=== PATIENT | male | born 1990 | race Caucasian/White ===

== ENCOUNTER 2017-08-13 03:32 | Emergency (ER) | payer BC ==
--- NOTE | 2017-08-13 03:49 | EDM.PDOC ---
ED HPI GENERAL MEDICAL PROBLEM - General Chief Complaint: Chest Pain Stated Complaint: CHEST PAINS Time Seen by Provider: 08/13/17 03:45 Source of Information: Reports: Patient, RN History Limitations: Reports: No Limitations - History of Present Illness INITIAL COMMENTS - FREE TEXT/NARRATIVE: 27 yo non-smoking male presents with anterior chest pain since about 2030h yesterday. Describes it as a constant ache. Has no medical history including no HTN, but has not had it measured in many yrs. Has no SOB, nausea, radiation, or diaphoresis. No calf pain or recent travel. FHx is significant for HTN in his father. The pain was preceded by and is still accompanied by left arm numbness. No neck pain at rest or with movement. The pain was keeping him awake so he came into the ER (alone) from his home in [place]. Onset Date: 08/12/17 Onset Time: 20:30 Duration: Hour(s): Location: Reports: Chest Quality: Reports: Ache Severity: Moderate Improves with: Reports: None Worsens with: Reports: None Context: Reports: Other (unknown) Associated Symptoms: Reports: Other (L arm numbness.) Treatments MEDIA SPECIALIST: Reports: Other (see below) (none) Left Chest Pain Score (Numeric/FACES): 3 - Related Data Allergies Allergy/AdvReac Type Severity Reaction Status Date / Time bee venom protein (honey bee) Allergy Anaphylactic Verified 08/13/17 03:45 Shock Home Meds: Home Meds NK [No Known Home Meds] 08/13/17 [History] ED ROS GENERAL - Review of Systems Review Of Systems: See Below Constitutional: Reports: No Symptoms HEENT: Reports: No Symptoms Respiratory: Reports: No Symptoms Cardiovascular: Reports: Chest Pain. Denies: Blood Pressure Problem, Claudication, Dyspnea on Exertion, Edema, Lightheadedness, Orthopnea, Palpitations, PND, Syncope Endocrine: Reports: No Symptoms GI/Abdominal: Reports: No Symptoms : Reports: No Symptoms Musculoskeletal: Reports: No Symptoms Skin: Reports: No Symptoms Neurological: Reports: Numbness (L arm) Psychiatric: Reports: No Symptoms ED EXAM, GENERAL - Physical Exam Exam: See Below Exam Limited By: No Limitations General Appearance: Alert, WD/WN, No Apparent Distress Eye Exam: Bilateral Eye: Normal Inspection Ears: Normal External Exam, Normal Canal, Hearing Grossly Normal, Normal TMs Ear Exam: Bilateral Ear: Auricle Normal, Canal Normal, TM normal Nose: Normal Inspection, Normal Mucosa, No Blood Throat/Mouth: Normal Inspection, Normal Lips, Normal Oropharynx, Normal Voice, No Airway Compromise Head: Atraumatic, Normocephalic Neck: Normal Inspection, Supple, Non-Tender Respiratory/Chest: No Respiratory Distress, Lungs Clear, Normal Breath Sounds, No Accessory Muscle Use, Chest Non-Tender Cardiovascular: Regular Rate, Rhythm, Tachycardia (mild resting tachycardia in the upper 80's to upper 90's.) GI/Abdominal: Normal Bowel Sounds, Soft, Non-Tender, No Distention Back Exam: Normal Inspection. No: CVA Tenderness (R), CVA Tenderness (L) Extremities: Normal Inspection, Normal Range of Motion, Non-Tender, No Pedal Edema Neurological: Alert, Oriented, CN II-XII Intact, Normal Cognition, No Motor/ Sensory Deficits Psychiatric: Normal Affect, Normal Mood Skin Exam: Warm, Dry, Intact, Normal Color, No Rash Lymphatic: No Adenopathy EKG INTERPRETATION EKG Date: 08/13/17 Time: 03:30 Rhythm: NSR Rate (Beats/Min): 96 [place]: Normal P-Wave: Present QRS: Normal ST-T: Normal QT: Normal Comparison: NA - No Prior EKG EKG Interpretation Comments: deep QRS's in anterior leads consistent with LVH. Course - Vital Signs Text/Narrative:: NTG 0.4 mg SL reduced his pain from 3-4/10 to 1/10 Later in his ER course after all his labs were reviewed he was walked several laps in the ER without a worsening of his sx's. Last Recorded V/S: Last Vital Signs Temp 35.7 C 08/13/17 03:40 Pulse 75 08/13/17 04:44 Resp 14 08/13/17 03:40 BP 125/75 08/13/17 04:44 Pulse Ox 100 08/13/17 03:40 - Orders/Labs/Meds Orders: Active Orders 24 hr Category Date Time Status Cardiac Monitoring [RC] .As Directed Care 08/13/17 03:46 Active EKG Documentation Completion [RC] ASDIRECTED Care 08/13/17 03:46 Active Nitroglycerin [Nitrostat] Med 08/13/17 03:57 Active 0.4 mg SL Q5M PRN Sodium Chloride 0.9% [Saline Flush] Med 08/13/17 03:58 Active 10 ml FLUSH ASDIRECTED PRN Saline Lock Insert [OM.PC] Routine Oth 08/13/17 03:58 Ordered EKG 12 Lead [EK] Routine Ther 08/13/17 03:46 Ordered Medication Orders Nitroglycerin (Nitrostat) 0.4 mg SL Q5M PRN PRN Reason: Chest Pain Last Admin: 08/13/17 04:09 Dose: 0.4 mg Sodium Chloride (Saline Flush) 10 ml FLUSH ASDIRECTED PRN PRN Reason: Keep Vein Open Last Admin: 08/13/17 04:08 Dose: 10 ml Labs: Laboratory Tests 08/13/17 08/13/17 08/13/17 Range/Units 04:08 04:08 04:08 WBC 7.5 (4.5-11.0) K/uL RBC 5.12 (4.30-5.90) M/uL Hgb 16.2 H (12.0-15.0) g/dL Hct 46.9 (40.0-54.0) % MCV 92 (80-98) fL MCH 32 H (27-31) pg MCHC 35 (32-36) % Plt Count 228 (150-400) K/uL D-Dimer, Quantitative < 100 (0.0-400.0) ng/mL Sodium 141 (140-148) mmol/L Potassium 3.9 (3.6-5.2) mmol/L Chloride 102 (100-108) mmol/L Carbon Dioxide 28 (21-32) mmol/L Anion Gap 10.9 (5.0-14.0) mmol/L BUN 13 (7-18) mg/dL Creatinine 1.1 (0.8-1.3) mg/dL Est Cr Clr Drug Dosing 99.98 mL/min Estimated GFR (MDRD) > 60 (>60) Glucose 110 H (74-106) mg/dL Calcium 9.4 (8.5-10.1) mg/dL Troponin I < 0.017 (0.000-0.056) ng/mL Meds: Medications Generic Name Dose Route Start Last Admin Trade Name Freq PRN Reason Stop Dose Admin Nitroglycerin 0.4 mg 08/13/17 03:57 08/13/17 04:09 Nitrostat SL 0.4 mg Q5M PRN Administration Chest Pain Sodium Chloride 10 ml 08/13/17 03:58 08/13/17 04:08 Saline Flush FLUSH 10 ml ASDIRECTED PRN Administration Keep Vein Open Discontinued Medications Generic Name Dose Route Start Last Admin Trade Name Freq PRN Reason Stop Dose Admin Aspirin 324 mg 08/13/17 03:57 08/13/17 04:08 Aspirin PO 08/13/17 03:58 324 mg ONETIME ONE Administration Ketorolac Tromethamine 30 mg 08/13/17 04:38 08/13/17 04:44 Toradol IVPUSH 08/13/17 04:39 30 mg ONETIME ONE Administration Metoprolol Tartrate 50 mg 08/13/17 04:38 Lopressor PO 08/13/17 04:39 ONETIME ONE Metoprolol Tartrate 25 mg 08/13/17 04:42 08/13/17 04:44 Lopressor PO 08/13/17 04:43 25 mg ONETIME ONE Administration Departure - Departure Time of Disposition: 05:43 Disposition: Home, Self-Care 01 Clinical Impression: Atypical chest pain, HTN, goal below 130/80 Referrals: PCP,None [Primary Care Provider] - Forms: ED Department Discharge - My Orders Last 24 Hours: My Active Orders 08/13/17 03:46 Cardiac Monitoring [RC] .As Directed EKG Documentation Completion [RC] ASDIRECTED EKG 12 Lead [EK] Routine 08/13/17 03:57 Nitroglycerin [Nitrostat] 0.4 mg SL Q5M PRN 08/13/17 03:58 Sodium Chloride 0.9% [Saline Flush] 10 ml FLUSH ASDIRECTED PRN Saline Lock Insert [OM.PC] Routine - Assessment/Plan Last 24 Hours: My Active Orders 08/13/17 03:46 Cardiac Monitoring [RC] .As Directed EKG Documentation Completion [RC] ASDIRECTED EKG 12 Lead [EK] Routine 08/13/17 03:57 Nitroglycerin [Nitrostat] 0.4 mg SL Q5M PRN 08/13/17 03:58 Sodium Chloride 0.9% [Saline Flush] 10 ml FLUSH ASDIRECTED PRN Saline Lock Insert [OM.PC] Routine
[2017-08-13] MEDS ORDERED: Nitroglycerin 0.4 MG Tab.SL SL PRN (03:57)
[2017-08-13] MEDS ORDERED: Aspirin 81 MG Tab.Chew PO ONE (03:57)
[2017-08-13] MEDS ORDERED: Sodium Chloride 0.9% 10 ML Syringe FLUSH PRN (03:58)
[2017-08-13] MEDS ORDERED: Ketorolac 30 MG/ML SDV IVPUSH ONE (04:38)
[2017-08-13] MEDS ORDERED: Metoprolol Tartrate 50 MG Tab PO ONE (04:38)
[2017-08-13] MEDS ORDERED: Metoprolol Tartrate 25 MG Tab PO ONE (04:42)
== END 2017-08-13 05:56 | disposition home or self-care (01) ==
LOC: JP.ED 03:32
DX: R07.89 Other chest pain (principal); I10 Essential (primary) hypertension; Z91.030 Bee allergy status
CPT/HCPCS: 36415; 80048; 84484; 85027; 85379; 93005; 96374; 99285; A9270; J1885; J7050